=== PATIENT | female | born 1980 | race Caucasian/White ===

== ENCOUNTER 2018-02-15 14:20 | Emergency (ER) | payer MEDICAID ==
--- NOTE | 2018-02-15 14:36 | Emergency Department Record ---
History of Present Illness - General Chief Complaint: Dizziness Stated Complaint: DIZINESS 3DAYS Time Seen by Provider: 02/15/18 14:36 Source: Patient Mode of Arrival: Ambulatory Limitations: No limitations - History of Present Illness Initial Comments: Pt with 1 day of dizziness worse with change in position. No FONG. Hx of similar in past related to Migraines without FONG. Not owrst of life. No fever, no visual change, no nausea. Better is still, worse with position change. MD Complaint: Dizziness Onset/Timin -: Days(s) Description: "Room spinning" History of Same: Yes History of Trauma: No Improves With: Other Worsens With: Position Associated Symptoms: Denies other symptoms - [place] Coma Scale Eye Response: (4) Open spontaneously Motor Response: (6) Obeys commands Verbal Response: (5) Oriented [place] Total: 15 - Related Data Home Medications Medication Instructions Recorded Confirmed Last Taken Duloxetine HCl [Cymbalta] 60 mg PO DAILY 02/15/18 02/15/18 02/15/18 Hydroxyzine Pamoate [Vistaril] 25 mg PO ASDIR 02/15/18 02/15/18 Unknown Propranolol HCl [Inderal Xl] 80 mg PO BID 02/15/18 02/15/18 02/15/18 Quetiapine Fumarate [Seroquel] 50 mg PO QHS 02/15/18 02/15/18 Unknown Previous Rx's Medication Instructions Recorded Meclizine HCl [Antivert] 25 mg PO Q8H 5 Days #20 tablet 02/15/18 Allergies Allergy/AdvReac Type Severity Reaction Status Date / Time lamotrigine [From Lamictal] Allergy RASH Verified 02/15/18 14:27 Travel Screening - Travel/Exposure Within Last 30 Days Have you traveled within the last 30 days?: No Review of Systems Constitutional: Denies: Chills, Fever, Malaise Eyes: Denies: Eye discharge, Photophobia, Vision change ENT: Denies: Congestion Respiratory: Denies: Cough Cardiovascular: Denies: Arrhythmia, Chest pain, Syncope Endocrine: Denies: Fatigue, Heat or cold intolerance Gastrointestinal: Denies: Abdominal pain Genitourinary: Denies: Abnormal menses Musculoskeletal: Denies: Arthralgia Skin: Denies: Bruising Neurological: Reports: As per HPI. Denies: Abnormal gait, Headache, Seizure, Tremors Psychiatric: Denies: Anxiety Hematological/Lymphatic: Denies: Anemia Past Medical History - SOCIAL HISTORY Smoking Status: Never smoker Alcohol Use: None Drug Use: None - RESPIRATORY Hx Respiratory Disorders: No - CARDIOVASCULAR Hx Cardio Disorders: Yes Hx Hypertension: Yes - NEURO Hx Neuro Disorders: Yes Hx Dizziness: Yes Hx Headaches: Yes Comment:: tremors - GI Hx GI Disorders: No - Hx Genitourinary Disorders: Yes Hx Kidney Stones: Yes - ENDOCRINE Hx Endocrine Disorders: No - MUSCULOSKELETAL Hx Musculoskeletal Disorders: No - PSYCH Hx Psych Problems: Yes Hx Anxiety: Yes Comment:: bipolar - HEMATOLOGY/ONCOLOGY Hx Hematology/Oncology Disorders: No Family Medical History Any Significant Family History?: Yes Family Hx Comment (NOT TO BE USED IN PLACE OF ITEMS BELOW): mother-hypothyroid Hx Heart Disease: Grandparents Physical Exam - General General Appearance: Alert, Oriented x3, Cooperative, No acute distress - Head Head exam: Atraumatic - Eye Eye exam: Normal appearance, PERRL, EOMI - ENT ENT exam: Normal exam, Mucous membranes moist, Normal external ear exam, Normal orophraynx, TM's normal bilaterally - Neck Neck exam: Normal inspection, Full ROM. negative: Tenderness - Respiratory Respiratory exam: Normal lung sounds bilaterally. negative: Rhonchi, Wheezes - Cardiovascular Cardiovascular Exam: negative: Regular rate, Normal rhythm, Normal heart sounds - GI/Abdominal GI/Abdominal exam: Soft, Normal bowel sounds. negative: Tenderness - Extremities Extremities exam: Normal inspection. negative: Tenderness - Back Back exam: Reports: Normal inspection - Neurological Neurological exam: Alert, Normal gait, Oriented X3. negative: CN II-XII intact (dizziness reproduces with change in head position. ) - Psychiatric Psychiatric exam: Normal affect, Normal mood - Skin Skin exam: Normal color. negative: Rash Course Vital Signs 02/15/18 14:24 Temperature 97.8 F Pulse Rate 74 Respiratory 20 Rate Blood Pressure 120/111 Pulse Ox 97 - Reevaluation(s) Reevaluation #1: 02/15/18 16:18 IV fluids and Benadryl IV wiht much improvment. Plan is HOME . Will hold Vistaril while on Antivert. Disposition Disposition: Discharge Clinical Impression: Vertiginous migraine Disposition: Home, Self-Care Condition: (1) Good Additional Instructions: Discharge Instructions: Return to ED if your symptoms worsen or if you have any concerns. Antivert as directed. Follow-up with your family doctor in 3-5 days as directed. Prescriptions: Meclizine HCl [Antivert] 25 mg PO Q8H 5 Days #20 tablet Forms: Patient Portal Access Quality - Quality Measures Quality Measures: N/A - Blood Pressure Screening Does Patient Have Any of the Following: No Blood Pressure Classification: Hypertensive Reading Systolic Measurement: 120 Diastolic Measurement: 111 Screening for High Blood Pressure: Patient Exclusion, Hx of HTN [[id number]]
[2018-02-15] MEDS ORDERED: 0.9 % SODIUM CHLORIDE 1000ML 1,000 ML IV ONE (14:43)
[2018-02-15] MEDS ORDERED: DIPHENHYDRAMINE HCL 50 MG/ML VIAL IVP ONE (14:44)
== END 2018-02-15 16:28 | disposition home or self-care (01) ==
LOC: ER 14:20
DX: G43.109 Migraine with aura, not intractable, without status migrainosus (principal); I10 Essential (primary) hypertension
CPT/HCPCS: 96361; 96374; 99284; J1200; J7030